=== PATIENT | male | born 1965 | race Caucasian/White ===

== ENCOUNTER 2024-03-30 08:37 | Outpatient (CLI) | payer OTHER | END 2024-03-30 08:38 | disposition home or self-care (01) | LOC: CSHSLEEP 08:37 | DX: G47.33 Obstructive sleep apnea (adult) (pediatric) (principal); R53.83 Other fatigue; R06.83 Snoring; G47.00 Insomnia, unspecified; I10 Essential (primary) hypertension | CPT/HCPCS: 95810 ==